=== PATIENT | female | born 2000 | race Caucasian/White ===

== ENCOUNTER → 2024-01-18 14:17 | Outpatient (CLI) | payer OTHER, SELFPAY ==
--- NOTE | 2024-01-18 14:21 | DI.US.S_ITS ---
PROCEDURE: US OB <= 14 WEEKS FETUS INDICATIONS: viability, f/u Subchorionic hemorrhage OUTSIDE/PRIOR DATING DATA: Last menstrual period (LMP): 10/15/2023. LMP-based estimated date of delivery (DALTON): 07/21/2024. First dating scan (date and location): Not available. Estimated date of delivery (DALTON) from first dating scan: Not applicable. TECHNIQUE: Real-time scanning was performed of the fetus and maternal pelvic organs, with image documentation. COMPARISON: None available at the time of this dictation. FINDINGS: Embryo: A single live intrauterine is seen. The measured heart rate is 137 beats per minute. The crown-rump length measures 8.3 cm, corresponding to an estimated gestational age of 14 weeks 2 days. It is too early for detailed anatomic assessment. By visual inspection, the amount of amniotic fluid is within normal limits. There is subchorionic hemorrhage seen on the left measuring 10.4 x 7.1 x 1.7 cm. An additional spot suspicious focus is seen retroplacental, which may represent a venous epps for this is additional bleed measuring 2.6 x 1.6 x 0.9 cm. Maternal organs: Ovaries are within normal limits, with an exophytic follicle seen on the right measuring up to 1.5 cm. IMPRESSION: A single live intrauterine is seen. There is a significant subchorionic hemorrhage seen measuring to 10.4 cm. There is additional bleed versus venous epps seen measuring 2.6 cm. Close clinical followup, with serial beta-hCG and serial ultrasound are recommended, if clinically appropriate. We strive to produce accurate, complete, and clear reports of imaging services. To assist us in improving patient care, this report was composed using standard report templates and voice recognition software. Therefore, it may contain abnormal punctuation, insertions and/or omissions. Occasional wrong-word or sound-alike substitutions may occur. Though we review the report and make efforts to correct it, we do recommend that the report be read carefully in proper context to recognize any text inaccuracies. Dictated by: Saul Moya M.D. on 01/18/2024 at 14:22 Approved by: Saul Moya M.D. on 01/18/2024 at 14:24
== END ==
PROVIDERS: PCP Nurse Practitioner Family; Referring Provider Student in an Organized Health Care Education/Training Program; Visit Provider Student in an Organized Health Care Education/Training Program
DX: O20.8 Other hemorrhage in early pregnancy (principal); Z3A.14 14 weeks gestation of pregnancy
CPT/HCPCS: 76801; 76817

== ENCOUNTER → 2024-02-21 13:42 | Outpatient (CLI) | payer OTHER, SELFPAY ==
--- NOTE | 2024-02-21 13:43 | DI.US.S_ITS ---
PROCEDURE: US OB >= 14 WEEKS FETUS INDICATIONS: anatomy scan OUTSIDE/PRIOR DATING DATA: Last menstrual period (LMP): 10/15/2023. LMP-based estimated date of delivery (DALTON): 07/21/2024. The calculations are made using the working DALTON of 07/21/2024. TECHNIQUE: Real-time scanning was performed of the fetus, with image documentation and biometric measurements. Endovaginal scanning: Not performed COMPARISON: [facility], , US OB >= 14 WEEKS FETUS, 02/03/2024, 9:51. FINDINGS: General: A single living intrauterine gestation is present. Presentation: Vertex Placenta: Placental position is anterior, without previa. Amniotic fluid index: 15.6 cm, normal range is 5-24 cm. Single deepest vertical pocket is 4.7 cm. heart rate: 144 beats per minute. Maternal cervical canal: 4.3 cm long. Normal lower limit is 2.5 cm. biometrics: Biparietal diameter: 4.5 cm, 19 weeks, 4 days. Head circumference: 15.5 cm, 18 weeks, 3 days. Abdominal circumference: 13.9 cm, 19 weeks, 2 days. Femur length: 2.8 cm common 18 weeks, 4 days. Clinically estimated gestational age: 18 weeks, 3 days Composite gestational age from present scan: 19 weeks, Estimated weight and percentile: 266 g, 77%. Anatomic survey: Neuro: Ventricles are non-dilated at less than 10 mm. Cisterna magna is normal at 3-11 mm. Cerebellum is normal in size and morphology. Nuchal skin fold: Normal at less than 6 mm between 14-21 weeks gestational age. Face: Nose and lips, facial profile are normal. Spine: No evidence for spina bifida. Heart: 4-chambered heart is present, with normal ventricular outflow tracts. Diaphragm: Diaphragm is intact. Stomach: Left-sided stomach is present. Kidneys: No hydronephrosis. Normal is less than 5 mm in 2nd trimester, less than 7 mm in 3rd trimester. Cord: 3-vessel cord has orthotopic insertion. Bladder: Normal in size. Extremities: All 4 extremities identified. IMPRESSION: 1. Single live intrauterine gestation with fetus in vertex presentation. heart rate is 144 beats per minute. Normal JENI at 15.6 cm. Cervix is closed and measures 4.3 cm in length. 2. Normal growth with estimated weight at 77%. 3. Normal anatomic survey. We strive to produce accurate, complete, and clear reports of imaging services. To assist us in improving patient care, this report was composed using standard report templates and voice recognition software. Therefore, it may contain abnormal punctuation, insertions and/or omissions. Occasional wrong-word or sound-alike substitutions may occur. Though we review the report and make efforts to correct it, we do recommend that the report be read carefully in proper context to recognize any text inaccuracies. Dictated by: Naif Mackenzie M.D. on 02/22/2024 at 11:24 Approved by: Naif Mackenzie M.D. on 02/22/2024 at 11:27
== END ==
PROVIDERS: PCP Nurse Practitioner Family; Referring Provider Student in an Organized Health Care Education/Training Program; Visit Provider Student in an Organized Health Care Education/Training Program
DX: Z34.02 Encounter for supervision of normal first pregnancy, second trimester (principal); Z3A.19 19 weeks gestation of pregnancy
CPT/HCPCS: 76811

== ENCOUNTER → 2024-04-23 11:52 | Outpatient (CLI) | payer OTHER, SELFPAY ==
[2024-04-23 13:19] LABS: Hematocrit 37.4 % (36-46); Hemoglobin 12.4 g/dL (12.0-16.0)
[2024-04-23 13:33] LABS: GTT (PREG) 1 Hour PP 50gm Dose 129 mg/dL (76-139)
[2024-04-25 03:11] LABS: Varicella IgG Antibody Non Reactive (Non Reactive)
== END ==
PROVIDERS: Student in an Organized Health Care Education/Training Program; PCP Nurse Practitioner Family; Referring Provider Nurse Practitioner Psychiatric/Mental Health; Visit Provider Nurse Practitioner Psychiatric/Mental Health
DX: Z34.00 Encounter for supervision of normal first pregnancy, unspecified trimester (principal); Z13.1 Encounter for screening for diabetes mellitus; Z13.0 Encounter for screening for diseases of the blood and blood-forming organs and certain disorders involving the immune mechanism
CPT/HCPCS: 36415; 82950; 85014; 85018; 86787; 86850; 86900; 86901

== ENCOUNTER 2024-05-16 09:58 | Observation (INO) | payer OTHER, SELFPAY ==
[2024-05-16 11:59] LABS: Add Manual Diff / Slide Review NO; Basophils Absolute Auto 100 /uL (0-100); Basophils Percent Auto 0.8 % (0-2); Eosinophils Absolute Auto 0 /uL (0-450); Eosinophils Percent Auto 0.3 % (2-4); Hematocrit 35.9 % (36-46); Lymphocytes Absolute Auto 2600 /uL (1100-4500); Lymphocytes Percent Auto 20.3 % (25-40); Mean Corpuscular HGB Conc 33.5 % (30-36); Mean Corpuscular Hemoglobin 30.4 PG (26-34); Monocytes Absolute Auto 1200 /uL (0-900); Monocytes Percent Auto 9.4 % (3-14); Neutrophils Absolute Auto 8900 /uL (1500-7000); Neutrophils Percent Auto 69.2 % (50-75); Platelet Count 249 X10^3/uL (150-400); Red Blood Cell Count 3.95 X10^6/uL (4.0-5.2); Red Cell Distribution Width 12.5 % (11.6-14.8); White Blood Cell Count 12.8 X10^3/uL (4.5-11.0)
[2024-05-16 12:12] LABS: Alanine Aminotransferase 18 IU/L (<35); Albumin 3.4 g/dL (3.5-5.0); Albumin Globulin Ratio 1.3 (1.0-2.8); Alkaline Phosphatase 104 U/L (38-126); Aspartate Aminotransferase 21 IU/L (14-36); Bilirubin Total 0.2 mg/dL (0.2-1.3); Blood Urea Nitrogen 7 mg/dL (7-17); Calcium 8.9 mg/dL (8.4-10.2); Carbon Dioxide 18 mmol/L (22-32); Chloride 109 mmol/L (98-107); Estimated Glomerular Filt Rate > 60 mL/min (>60); Globulin 2.6 g/dL (1.7-4.1); Glucose 83 mg/dL (70-100); HEMOLYSIS < 15 (0-50); Potassium 4.2 mmol/L (3.4-5.1); Sodium 135 mmol/L (137-145); Uric Acid 3.7 mg/dL (2.5-6.2)
[2024-05-16 12:12] LABS: Protein (Total) Urine Random < 5 mg/dL (0-12)
[2024-05-16 12:22] LABS: Creatinine Urine Random 473.43 mg/dL; Protein Creatinine Ratio Urine 0.01 GRAM/24H
== END 2024-05-16 12:30 | disposition home or self-care (01) ==
PROVIDERS: Admitting Provider Obstetrics & Gynecology; PCP Nurse Practitioner Family; Referring Provider Obstetrics & Gynecology; Visit Provider Obstetrics & Gynecology
DX: O36.8130 Decreased fetal movements, third trimester, not applicable or unspecified (principal); O26.893 Other specified pregnancy related conditions, third trimester; R20.2 Paresthesia of skin; Z3A.30 30 weeks gestation of pregnancy
CPT/HCPCS: 36415; 59025; 59050; 80053; 84550; 85025; G0378; G0379

== ENCOUNTER 2024-06-19 10:13 | Observation (INO) | payer OTHER, SELFPAY ==
--- NOTE | 2024-06-19 10:54 | PM.OBTRLD ---
Visit Information Visit Information Date of evaluation: 06/19/24 Primary OB Provider: Alicia Cheek Reason for Evaluation: Yes rule out labor and Yes rupture of membranes Vital Signs Vital Signs: vitals reviewed in OBIX, within normal parameters [facility] Medical History (Updated 06/19/24 @ 20:48 by Alicia Cheek DO) Clavicle fracture (~2021) Surgical History (Updated 01/18/24 @ 08:05 by Lana Maddox, RN) History of tonsillectomy [place] teeth extracted Family History (Updated 01/18/24 @ 08:07 by Lana Maddox, RN) Mother Pseudotumor cerebri syndrome Grandmother Breast cancer Brain cancer Aunt Breast cancer Grandfather Alzheimer's disease Grandmother Epilepsy Social History marital status: unmarried,single number of children: 0 lives independently: Yes caregiver/support person: No housing: house pets and animals: Yes (not currently living w/ pt) education level: college (Bachelor's degree) occupational status: employed (active duty [employer]) current occupational exposures/hazards: No yusuf/latter day: Moravian special yusuf needs: No travel history: recent ([place], [place], [place], [place], [place]) seatbelt use: always helmet use: Yes firearms in home: Yes firearms unloaded and locked: Yes do you feel safe at home: Yes Smoking Status: Never smoker second hand exposure: Yes (best friend vapes and smokes MJ and will be coming to live w/ pt) alcohol intake: never substance use type: does not use during the past year weight has: other (wide fluctuations) well-balanced diet: daily or most days daily servings fruits/ve or more times/day caffeine: Yes (minimal, occasional cup tea) Type(s) of exercise: walking Evaluation Evaluation Baseline heart rate: 130 Variability: Moderate (11-25) monitor accelerations: Present Monitor Decelerations: Absent Contraction Frequency (minutes): 3 Uterine Contraction Intensity: Mild Category of Tracing: Reactive Cervical dilation (cm): 1 Non-invasive Membranes Rupture Test: negative Diagnosis, Plan/Disposition Final Diagnosis (1) Suspected rupture of membranes not found for normal first : Status: Acute Plan/Disposition Plan: 24yo at 35+3wks presented to triage for rule-out PPROM and labor. Reassuring evaluation in triage, with negative amnisure. UA suspicious for UTI, however could also be contamination, thus will wait for the urine culture. Her cervix remained unchanged after 2hrs of observation in triage. -patient discharged to home with routine precautions -follow-up in clinic as scheduled OB Disposition: home
[2024-06-19 11:02] LABS: Appearance Urine UA CLEAR; Bilirubin Urine UA NEGATIVE (NEGATIVE); Color Urine UA YELLOW; Glucose Urine UA NEGATIVE (Negative); Ketones Urine UA NEGATIVE (NEGATIVE); Leukocyte Esterase Urine UA 1+ (NEGATIVE); Nitrite Urine UA POSITIVE (Negative); Occult Blood Urine UA NEGATIVE (Negative); Protein Urine UA NEGATIVE (Negative); Specific Gravity Urine UA 1.025 (1.000-1.035); Urobilinogen Urine UA 0.2 E.U./dL (0.2)
[2024-06-19 11:08] LABS: pH Urine UA 6.5 (4.5-8.0)
[2024-06-19 11:09] LABS: Amorphous Sediment Urine 1+; Bacteria Urine Many (>30); Culture Indicated Urine Specimen Cultured; RBC Urine None Seen (0-5/HPF); Squamous Epithelial Cell Urine 10-30 /HPF (0-5/HPF); Urine Volume 10mL (spun); WBC Urine 5-10/HPF (0-5/HPF)
== END 2024-06-19 13:05 | disposition home or self-care (01) ==
PROVIDERS: Admitting Provider Student in an Organized Health Care Education/Training Program; PCP Nurse Practitioner Family; Referring Provider Student in an Organized Health Care Education/Training Program; Visit Provider Student in an Organized Health Care Education/Training Program
DX: Z03.71 Encounter for suspected problem with amniotic cavity and membrane ruled out (principal)
CPT/HCPCS: 59025; 81001; 84112; 87086; G0378; G0379

== ENCOUNTER → 2024-06-22 13:40 | Outpatient (CLI) | payer OTHER, SELFPAY ==
[2024-06-24 12:45] LABS: Strep Grp B PCR NEG for Grp B Strep
== END ==
PROVIDERS: PCP Nurse Practitioner Family; Visit Provider Student in an Organized Health Care Education/Training Program
DX: Z36.85 Encounter for antenatal screening for Streptococcus B (principal)
CPT/HCPCS: 87653

== ENCOUNTER 2024-06-27 14:59 | Outpatient (CLI) | payer OTHER, SELFPAY ==
--- NOTE | 2024-06-27 15:48 | P.TNLD_ITS ---
Visit Information Visit Information Date of evaluation: 06/27/24 Primary OB Provider: Alicia Cheek On-call OB Provider: Suzanne Aguilera Reason for Evaluation: Yes rupture of membranes Comments/Additional reasons for admission: r/o SROM Amnisure negative on arrival [facility] Medical History (Updated 06/22/24 @ 13:48 by Alicia Cheek DO) Clavicle fracture (~2021) Surgical History (Updated 01/18/24 @ 08:05 by Lana Maddox, RN) History of tonsillectomy [place] teeth extracted Family History (Updated 01/18/24 @ 08:07 by Lana Maddox, RN) Mother Pseudotumor cerebri syndrome Grandmother Breast cancer Brain cancer Aunt Breast cancer Grandfather Alzheimer's disease Grandmother Epilepsy Social History marital status: unmarried,single number of children: 0 lives independently: Yes caregiver/support person: No housing: house pets and animals: Yes (not currently living w/ pt) education level: college (Bachelor's degree) occupational status: employed (active duty [id number]) current occupational exposures/hazards: No yusuf/christianity: Amish special yusuf needs: No travel history: recent ([place], [place], [place], [place], [place]) seatbelt use: always helmet use: Yes firearms in home: Yes firearms unloaded and locked: Yes do you feel safe at home: Yes second hand exposure: Yes (best friend vapes and smokes MJ and will be coming to live w/ pt) alcohol intake: never substance use type: does not use during the past year weight has: other (wide fluctuations) well-balanced diet: daily or most days daily servings fruits/ve or more times/day caffeine: Yes (minimal, occasional cup tea) Type(s) of exercise: walking Review of Systems Review of Systems ROS: Yes All systems reviewed with the patient and are negative except as otherwise documented Exam Vital Signs (past 8 hours): maternal VSS/afebrile, reviewed in OBIX and wnl Evaluation Evaluation Baseline heart rate: 140 Variability: Moderate (11-25) monitor accelerations: Present Monitor Decelerations: Absent Uterine Contraction Intensity: Mild Category of Tracing: Reactive Status: Category l Non-invasive Membranes Rupture Test: negative Diagnosis, Plan/Disposition Plan/Disposition OB Disposition: home
== END 2024-06-27 15:50 | disposition home or self-care (01) ==
LOC: OB 16:52
PROVIDERS: PCP Nurse Practitioner Family; Referring Provider Student in an Organized Health Care Education/Training Program; Visit Provider Student in an Organized Health Care Education/Training Program
DX: Z03.71 Encounter for suspected problem with amniotic cavity and membrane ruled out (principal)
CPT/HCPCS: 59025; G0378; G0379